=== PATIENT | male | born 1955 | race Caucasian/White ===

== ENCOUNTER 2022-06-21 17:02 | Inpatient (IN) | payer MEDICARE, SELFPAY ==
[2022-06-18 08:41] VITALS: BMI 31.1
--- NOTE | 2022-06-18 09:10 | PC.NURSE ---
Report to the Outpatient Waiting Room, entrance under the green pavilion located off [facility], at time _9:30AM on date __06/21/22 . Planned Procedure Time: __11:30AM . Time changes happen often and if your time is changed the preop area will call you the afternoon before. - You and your visitor will be asked to self-screen and do not enter if you have any COVID symptoms. - We encourage only one visitor and NO visitors under age 16 are allowed at this time. Your visitor will receive communication by the phone number that is given day of service. - The patient visitor is requested to social distance or may leave the building when not with patient due to restrictions. - A mask is required within the hospital. Patients may have clear liquids (water, carbonated beverages, clear teas, apple juice) until 3 hours prior to surgery with a maximum of 20 ounces. - No food from midnight until time of surgery Take the following medications with a SIP of water the morning of surgery: ___HYDROCODONE NEEDED, PREGABALIN NEEDED Medications to discontinue per physician __HOLD ASPIRIN 7 DAYS PRE-OP PER PATIENT (PER DR MELTON)- LAST DOSE WAS 06/14/22. HOLD ALL VITAMINS/SUPPLEMENTS 3 DAYS PRE-OP- LAST DOSE 06/18/22 Please no make-up, nail bermudian, hairspray, perfume, deodorant, or body powder the day of surgery. No jewelry (including any body piercings) or valuables the day of surgery, leave them at home. Please take a shower or bath the night before, or the morning of, surgery with an antibacterial soap. Wear comfortable, loose fitting clothing. Children are encouraged to wear pajamas. - Jewelry must be removed prior to entering the operating room. Rings and piercings that are not removed may be cut off. - The hospital will not accept responsibility for valuables. - Please leave all valuables, including medications, at home the day of surgery. If you are going home after surgery, a licensed route cdl driver must drive you home. - NO public transportation without another adult. - We recommend that an adult stay with you for 24 hours following discharge. - We also recommend that you do not drive, make important decision, drink alcoholic beverages, or take any drugs that were not prescribed by your health care provider for at least 24 hours after your discharge time. Follow any additional instructions given to you from your surgeon. If you or anyone in your household have experienced Covid symptoms in the past week, please notify your surgeon or the nurse liaison at the phone number below for possible testing. Telephone instructions given to _PATIENT___and asked if any additional questions and then verbalized understanding. Patient advised to call surgeon office or pre surgery nurse liaison [phone] if any additional questions.
[2022-06-21] VITALS (14 sets, daily range): BP systolic 134–173; BP diastolic 77–105; PULSE 63–86; RESP 13–19; TEMP 36.2–36.6; O2SAT 92–100
--- NOTE | ~2022-06-21 | XR_ITS ---
EXAMINATION: XR fluoroscopy no charge INDICATION: Spinal fusion TECHNIQUE: Three intraoperative fluoroscopic images are submitted for review. Total fluoroscopic time was 9.2 seconds COMPARISON: None available FINDINGS: Fluoroscopic images demonstrate instrumented posterior fusion of the spine. Please refer to procedure note for full details. IMPRESSION: 1. Please refer to procedure note for full details. Reviewed, dictated and finalized at location [facility]
--- NOTE | 2022-06-21 10:52 | P.PNAN_ITS ---
Anes - Initial Pre Proc Eval Procedure: Operation Date: 06/21/22 11:30 Proposed Procedures p C3-T1 Laminectomy, C3-T2 Lateral Mass Instrumented Fusion - Aron Gomez MD Date/Time: 06/21/22 10:52 Surgeon: Aron Gomez MD Pre Op Diagnosis: cervical stenosis w/myelopathy Patient Data Age: 67 Gender: M Height: 1.83 m Weight: 104 kg Allergies Allergy/AdvReac Type Severity Reaction Status Date / Time chlorhexidine Allergy Itching, Verified 06/18/22 08:32 RASH Home Medications Medication Instructions Recorded Confirmed Type acetaminophen 650 mg 1,300 mg PO Q12H PRN Pain 06/18/22 06/18/22 History tablet,extended release aspirin 81 mg tablet,delayed 81 mg PO DAILY 06/18/22 06/18/22 History release atorvastatin 40 mg tablet 40 mg PO 3XW 06/18/22 06/18/22 History coenzyme Q10 100 mg capsule 100 mg PO 3XW 06/18/22 06/18/22 History (CoQ-10) duloxetine 30 mg capsule,delayed 60 mg PO HS 06/18/22 06/18/22 History release hydrocodone 5 mg-acetaminophen 325 1 tablet PO Q4-6H PRN Pain 06/18/22 06/18/22 History mg tablet pantoprazole 40 mg tablet,delayed 40 mg PO BID 06/18/22 06/18/22 History release pregabalin 100 mg capsule 100 mg PO TID 06/18/22 06/18/22 History Patient hx anesthesia problems: none Family hx anesthesia problems: none Results Review: All pre-operative results and documents have been reviewed as part of the pre- operative evaluation. [facility] Social History Social History Smoking packs per day: 0.5 Smoking cigarettes per day: 10.0 Years smoked: 30 Smoking pack-years: 15.00 Smoking status: Former smoker Tobacco type: cigarettes Smoking end date: 02/02/17 Alcohol intake: current Drinks per week: 2 Substance use: never Living arrangements: with family Additional living arrangements comments: Spiritual care concerns: No Anes - Eval Final PreProcedure Day of Procedure 06/21/22 10:52 Patient weight: obese Heart: regular rate and rhythm Lungs: clear to auscultation Airway: Mallampati scale class III Neurological: alert and oriented Last oral intake: >/= 8 hours ASA classification: III Emergent: no Anesthetic plan: proceed Anesthesia type and monitoring: general ETT and standard monitoring Results Review: All pre-operative results and documents have been reviewed as part of the pre- operative evaluation. Informed Consent: The patient's anesthetic plan and its attendant risks and benefits were discussed with the patient/family/POA. Questions were solicited and answers provided to the satisfaction of the patient/family/POA.
[2022-06-21 10:56] LABS: Basophils Percent Auto 0.5 % (0.2-1.2); Eosinophils Absolute Auto 0.1 K/mm3 (0-0.3); Eosinophils Percent Auto 1.2 % (0-4.4); Hemoglobin 13.6 g/dL (14.0-18.0); Immature Granulocyte Absolute 0.03 K/mm3 (0.00-0.031); Immature Granulocyte Percent A 0.4 % (0-0.5); Lymphocytes Absolute Auto 1.82 K/mm3 (0.9-3.2); Lymphocytes Percent Auto 24.9 % (18.3-44.2); Mean Corpuscular HGB Conc 33.2 g/dl (32-36); Mean Corpuscular Hemoglobin 29.2 pg (26-34); Mean Platelet Volume 11.3 fl (7.4-10.4); Monocytes Absolute Auto 0.5 K/mm3 (0.1-0.6); Monocytes Percent Auto 7.2 % (2.6-8.5); Neutrophils Absolute Auto 4.8 K/mm3 (1.3-6.7); Neutrophils Percent Auto 65.8 % (45.5-73.1); Platelet Count Result 183 k/mm3 (150-375); Red Blood Count 4.66 M/mm3 (4.6-6.20); Red Cell Distribution Width 13.4 % (11.5-14.5); White Blood Count 7.3 K/mm3 (4.5-10.0)
--- NOTE | 2022-06-21 11:47 | PM.IMHP ---
H&P: HPI History of Present Illness Date/Time: 06/21/22 11:47 Chief Complaint: Neck and arm pain, imbalance Narrative: Edgar is a 67-year-old gentleman with neck and arm pain as well as spinal cord compression causing myelopathy who presents for C3-T2 laminectomy and lateral mass instrumented fusion. He has not changed since we saw him last. He does not have specific muscle group weakness or dermatomal numbness. He does have general weakness in his distal upper extremities. He does not have bowel or bladder difficulty. He continues to have imbalance. Review of Systems Review of Systems: Patient denies shortness of breath, cough, fever, chills, nausea, vomiting, chest pain, weight loss, weight gain, dysuria. He has neck and arm pain as described above. He has imbalance. his review of systems otherwise negative except as noted elsewhere. [facility] Social History Social History Smoking packs per day: 0.5 Smoking cigarettes per day: 10.0 Years smoked: 30 Smoking pack-years: 15.00 Smoking status: Former smoker Tobacco type: cigarettes Smoking end date: 02/02/17 Alcohol intake: current Drinks per week: 2 Substance use: never Living arrangements: with family Additional living arrangements comments: Spiritual care concerns: No Meds Home Medications and Allergies Home Medications Medication Instructions Recorded Confirmed Type acetaminophen 650 mg 1,300 mg PO Q12H PRN Pain 06/18/22 06/18/22 History tablet,extended release aspirin 81 mg tablet,delayed 81 mg PO DAILY 06/18/22 06/18/22 History release atorvastatin 40 mg tablet 40 mg PO 3XW 06/18/22 06/18/22 History coenzyme Q10 100 mg capsule 100 mg PO 3XW 06/18/22 06/18/22 History (CoQ-10) duloxetine 30 mg capsule,delayed 60 mg PO HS 06/18/22 06/18/22 History release hydrocodone 5 mg-acetaminophen 325 1 tablet PO Q4-6H PRN Pain 06/18/22 06/18/22 History mg tablet pantoprazole 40 mg tablet,delayed 40 mg PO BID 06/18/22 06/18/22 History release pregabalin 100 mg capsule 100 mg PO TID 06/18/22 06/18/22 History Allergies Allergy/AdvReac Type Severity Reaction Status Date / Time chlorhexidine Allergy Itching, Verified 06/18/22 08:32 RASH Exam Narrative: Patient is a normally developed, normal appearing male supine on the hospital bed in no acute distress. He is awake, alert, oriented x3, with good fund of knowledge, recall of events and fluent speech. His face is symmetrical, tongue is midline, his pupils are equal reactive to light his extraocular movements are intact without diplopia or nystagmus. Strength is normal in the bilateral upper extremities with the exception of slight manager quantitative weakness and intrinsic weakness bilaterally. Sensation is intact to light touch throughout the upper extremities. Clear to auscultation Regular rate rhythm. H&P: Results Labs Labs: Short CBC 06/21/22 Range/Units 10:50 WBC 7.3 (4.5-10.0) K/mm3 Hgb 13.6 L (14.0-18.0) g/dL Hct 41.0 L (42.0-52.0) % Plt Count 183 (150-375) k/mm3 Assessment and Plan Assessment and plan (1) Cervical stenosis of spinal canal: Code(s): M48.02 - Spinal stenosis, cervical region Status: Acute (2) Myelopathy: Code(s): G95.9 - Disease of spinal cord, unspecified Status: Acute (3) Foraminal stenosis of cervical region: Code(s): M48.02 - Spinal stenosis, cervical region Status: Acute Plan Edgar is 67-year-old gentleman who presents for laminectomy and lateral mass instrumented fusion at C3-T2 for spinal cord compression and myelopathy as well as neck and arm pain. I described to him again that operation, its risks, potential benefits, the operative and postoperative course in detail and answered all his questions personally. He indicates understanding and elects to proceed with that operation.
--- NOTE | 2022-06-21 11:50 | WPDHPUPDATE1 ---
History and Physical Update Update Date/Time: 06/21/22 11:50 History and Physical has been reviewed, including an updated exam of the patient. There are NO changes in the patient's condition. Risks, benefits, and alternatives have been discussed and questions answered. Patient agrees to proceed with procedure.
[2022-06-21] MEDS: ceFAZolin 2 GM/D5W 50 ML 2 GM/50 ML BAG IVPB (13:05)
[2022-06-21] MEDS: BUPIVACAINE/EPINEPHRINE 0.25% 50 ML VIAL 30 ML INFILTRATE (13:07)
--- NOTE | 2022-06-21 15:03 | W.PM.PROC2 ---
Procedure Note - Detailed Date of Procedure 06/21/22 Pre-op Diagnosis cervical stenosis w/myelopathy Post-op Diagnosis Same Procedure Performed C3-T1 laminectomy and C3-T2 lateral mass instrumented fusion with lateral mass and pedicle screws and local autograft Surgeon Aron Gomez MD Wrapper Stemmer Hand Fly [place] General Indications Edgar is a 67-year-old gentleman with a cervical spondylotic myelopathy and neck pain who presents for decompression and fusion from a posterior approach. Description of Procedure Patient was brought to the operating room in the supine position, was sedated, intubated and placed under general anesthesia in routine fashion. He was then turned into the prone position on gel rolls with his head in a Antunez head of visual merchandising with pins attached to the bed frame in a Petterchak dirt and flexed position. The area of operation on the back of his neck was examined, marked for incision, prepped and draped in routine sterile fashion. Incision was marked over the C3 through T2 spinous processes in the midline. This area was injected with 0.5% lidocaine with [id number] epinephrine. Intravenous antibiotics given prior to incision. Incision was made with a 10 blade scalpel down to the cervical fascia. A subperiosteal dissection of the muscle and soft tissue away from the spinous processes and lamina at C3-T2 was performed with a subperiosteal elevator and Bovie cautery. Self-retaining retractors were placed. A verifying x-rays obtained to verify the level of operation. A Midas Marcelino drill was used to create a transient the lamina bilaterally at L3-T1 until the soft contents of the canal were encountered. A Leksell rongeur was used to cut the interspinous ligament below T1 above C3 and Kerrison punches were used to remove soft tissue adherent in the lateral epidural space underneath the trough cut. The C3 through T1 laminae a could then be removed in 1 piece with the spinous processes. These were stripped free of soft tissue and morselized for later use as lateral mass fusion bone. Kerrison punches and curved curettes were used to define a plane with the dura and remove additional bone and ligament completing the laminectomy. Lateral mass screws were placed at C3 through C6 by creating a hole 1 mm medial and 1 mm mm inferior to the mid plate of the facet and then creating a hole 14 mm deep and a trajectory 20? cephalad 20? lateral in each facet. A 14 mm screw was then placed into each lateral mass except at C4 on the left as it exited the bone laterally and would not hold a screw. Pedicle screw instrumentation was performed at T1 and T2 by observing and palpating the pedicle while a hole was made in the superior articular process above the pedicle using a Midas Marcelino drill. The pedicle was then cannulated with a pedicle probe, checked for continuity with the ball probe, tapped with a 3.5 mm tap and a 4 x 26 mm screw was placed except at the left T1 pedicle where a 30 mm screw was placed. Lateral masses and facets were then decorticated using a Midas Marcelino drill. The morselized bone was packed inside the facets and on along the lateral masses from C3-T2. 120 mm rods were fashion and placed into the screw heads on either side and then secured in position using the caps for that purpose. These were definitively tightened with a torque and anti torque device. The wound had been copiously irrigated with bacitracin irrigation all bleeding stopped with bipolar and Bovie cautery and Gelfoam thrombin powder. The wound was then closed in layered fashion with 2-0 Vicryl interrupted sutures in the cervical fascia and Reggie's layer. 3-0 Vicryl buried interrupted sutures were placed in the dermis and the skin was closed with samuel and dressed with gauze and tape dressing. The patient was then turned into the supine position on hospital bed and the Antunez was removed. Patient was loud wake up in the operating room and was taken to the recovery r
[2022-06-21] MEDS: LACTATED RINGERS 1,000 ML 30 ML IV CONT (15:28)
[2022-06-21] MEDS: fentaNYL CITRATE INJ (*CRX) 100 MCG/2 ML VIAL 25 MCG IV PUSH ×7 (15:53→16:55)
--- NOTE | 2022-06-21 17:23 | PC.NURSE ---
This patient, Edgar Rascon, was admitted to Medical Room 246-01. Patient/family oriented to hospital policies and general routines including ID bracelet, bed and alarms, visiting hours, pain management, procedures, bathroom and other care routines, personal items, smoking policy, room service/diet, and visiting hours. Information on how to activate the Rapid Response Team has been discussed. Patient/Family are encouraged to report perceived risks to care and to ask questions if they do not understand what they are told or what they should do.
[2022-06-21] MEDS: KCL 20 MEQ/D5/0.45% SOD CHL 1,000 ML 100 ML IV CONT (17:49)
[2022-06-21] MEDS: PREGABALIN (*CRX) 50 MG CAPSULE 100 MG PO (17:54)
[2022-06-21] MEDS: HYDROcodone/acetaminophen (*CRX) 10-325 MG TABLET 1 TAB PO (17:55)
[2022-06-21] MEDS: DOCUSATE SODIUM 100 MG CAPSULE PO (20:51)
[2022-06-21] MEDS: DULoxetine HCL 60 MG CAPSULE.DR PO (20:51)
[2022-06-21] MEDS: HYDROmorphone HCL INJ (*CRX) 1 MG/ML SYR 0.5 MG IV PUSH (21:28)
[2022-06-22] MEDS: HYDROcodone/acetaminophen (*CRX) 10-325 MG TABLET 1 TAB PO (00:28)
[2022-06-22 02:00] VITALS: BP 122/75; PULSE 72; RESP 18; TEMP 36.8; O2SAT 97
[2022-06-22] MEDS: HYDROmorphone HCL INJ (*CRX) 1 MG/ML SYR 0.5 MG IV PUSH (02:45)
[2022-06-22 05:17] VITALS: BP 126/73; PULSE 68; RESP 17; TEMP 36.6; O2SAT 93
[2022-06-22] MEDS: KCL 20 MEQ/D5/0.45% SOD CHL 1,000 ML 100 ML IV CONT ×2 (06:07→20:24)
[2022-06-22] MEDS: PREGABALIN (*CRX) 50 MG CAPSULE 100 MG PO ×3 (08:50→16:56)
[2022-06-22] MEDS: ATORVASTATIN 40 MG TABLET PO (08:50)
[2022-06-22] MEDS: DOCUSATE SODIUM 100 MG CAPSULE PO ×2 (08:50→20:24)
[2022-06-22] MEDS: PANTOPRAZOLE 40 MG TABLET PO ×2 (08:50→16:57)
--- NOTE | 2022-06-22 08:54 | P.PNAN_ITS ---
Anes - Prog Note Post-Op Date/Time: 06/22/22 08:54 Cardiovascular status: normal Respiratory status: normal Airway patency: other (uvulva swollen, airway clear, no active bleeding, phonation intact, recommend HOB elevated, atraumatic intubation) Mental status: baseline Post-Op hydration status: normal Vital Signs: Last Vital Signs Temp 36.6 C 06/22/22 05:17 Pulse 68 06/22/22 05:17 Resp 17 06/22/22 05:17 BP 126/73 06/22/22 05:17 Pulse Ox 93 06/22/22 05:17 O2 Del Method Room Air 06/22/22 08:15 O2 Flow Rate 2 06/21/22 20:00 Pain Score (VAS): 09/14 I/O: Intake & Output 06/21/22 06/22/22 06/22/22 23:59 07:59 15:59 Intake Total 5050 1500 Output Total 190 1300 Balance 4860 200 Laboratory Tests 06/21/22 10:50 06/21/22 06/21/22 10:50 10:50 WBC 7.3 RBC 4.66 Hgb 13.6 L Hct 41.0 L MCV 88.0 MCH 29.2 MCHC 33.2 RDW 13.4 Plt Count 183 MPV 11.3 H Immature Gran % (Auto) 0.4 Neut % (Auto) 65.8 Lymph % (Auto) 24.9 Routt % (Auto) 7.2 Eos % (Auto) 1.2 Baso % (Auto) 0.5 Lymph # (Auto) 1.82 Routt # (Auto) 0.5 Eos # (Auto) 0.1 Baso # (Auto) 0.0 Abs Immat Gran (auto) 0.03 Absolute Neuts (auto) 4.8 Absolute Nucleated RBC 0.0 Nucleated RBC % 0.0 Blood Type A Positive Antibody Screen Negative Post-procedural complaints: none Patient Feedback: Patient satisfied with anesthetic care.
--- NOTE | 2022-06-22 08:56 | WPDNEUROSGPN ---
Progress Note: A&P Assessment and Plan (1) Foraminal stenosis of cervical region: Code(s): M48.02 - Spinal stenosis, cervical region Status: Acute (2) Myelopathy: Code(s): G95.9 - Disease of spinal cord, unspecified Status: Acute (3) Cervical stenosis of spinal canal: Code(s): M48.02 - Spinal stenosis, cervical region Status: Acute Plan I will change the hydrocodone to oxycodone. We will continue to watch the drain output today. He will continue to 5 participate in physical therapy. I will get him a hard cervical collar. Subjective Date/time seen: 06/22/22 08:56 The patient is postop day 1 status post C3 to T1 laminectomy and C3-T2 lateral mass instrumented fusion. He is doing well from the standpoint of that med has discomfort that is limiting and some confidence issues when he stands and walks. He described having imbalance or unsteadiness today which, as mentioned, the physical therapist believes is related to fear and lack of confidence. He does not report any new issues in his upper or lower extremities. He is not having any bowel or bladder difficulty. The IV pain medicine is helping him but not the p.o. pain medicine. Exam Narrative: In the sitting position strength is normal in the bilateral lower extremities to direct confrontation. Sensation is intact to light touch throughout the lower extremities. Dressing is clean, dry and intact. The drain bulb was expanded with significant sanguinous fluid in it. Objective Data Vital Signs Vital Signs: Vital Signs - 24 hr 06/21/22 15:28 06/21/22 15:40 06/21/22 15:55 Temperature 97.7 F Pulse Rate 74 67 64 Respiratory Rate 13 16 15 Blood Pressure 173/105 H 161/101 H 162/84 H Pulse Oximetry 100 100 100 Oxygen Delivery Simple Face Mask Simple Face Mask Simple Face Mask Oxygen Flow Rate 6 6 6 06/21/22 16:10 06/21/22 16:25 06/21/22 16:40 Temperature Pulse Rate 69 63 66 Respiratory Rate 16 16 17 Blood Pressure 143/92 H 134/94 H 143/84 H Pulse Oximetry 92 100 98 Oxygen Delivery Room Air Nasal Cannula Nasal Cannula Oxygen Flow Rate 2 2 06/21/22 16:55 06/21/22 17:31 06/21/22 17:25 Temperature 97.1 F L Pulse Rate 64 79 Respiratory Rate 19 14 Blood Pressure 146/92 H 146/77 H Pulse Oximetry 96 95 95 Oxygen Delivery Nasal Cannula Nasal Cannula Oxygen Flow Rate 2 2 06/21/22 17:45 06/21/22 18:10 06/21/22 19:50 Temperature 97.2 F L 97.4 F L 97.3 F L Pulse Rate 69 80 70 Respiratory Rate 16 14 16 Blood Pressure 145/90 H 138/80 137/84 Pulse Oximetry 95 98 96 Oxygen Delivery Oxygen Flow Rate 06/21/22 21:49 06/21/22 20:00 06/22/22 02:00 Temperature 97.8 F 98.2 F Pulse Rate 86 72 Respiratory Rate 18 18 Blood Pressure 141/81 H 122/75 Pulse Oximetry 95 96 97 Oxygen Delivery Nasal Cannula Oxygen Flow Rate 2 06/22/22 05:17 06/22/22 08:15 Temperature 97.8 F Pulse Rate 68 Respiratory Rate 17 Blood Pressure 126/73 Pulse Oximetry 93 Oxygen Delivery Room Air Oxygen Flow Rate Intake/Output Intake/Output: Intake & Output 06/19/22 06/20/22 06/21/22 06/22/22 23:59 23:59 23:59 23:59 Intake Total 7550 1500 Output Total 190 1300 Balance 7360 200 Meds/Results Medications: Active Medications Generic Name Dose Route Start Last Admin Trade Name Freq PRN Reason Stop Dose Admin Hydrocodone Bitart/Acetaminophen 1 tab 06/21/22 17:02 Hydrocodone/Acetaminophen (*Crx) 5-325 Mg Tablet PO Q4H PRN Mild Pain (1-3) Hydrocodone Bitart/Acetaminophen 1 tab 06/21/22 17:02 06/22/22 00:28 Hydrocodone/Acetaminophen (*Crx) 10-325 Mg Tablet PO 1 tab Q4H PRN Administration Moderate Pain (4-6) Al Hydrox/Mg Hydrox/Simethicone 20 ml 06/21/22 17:02 Mag Hydrox/Al Hydrox/Simeth 30 Ml Udc PO Q4H PRN Indigestion/Heartburn Atorvastatin Calcium 40 mg 06/22/22 09:00 06/22/22 08:50 Atorvastatin 40 Mg Tablet PO 40 mg MoW
[2022-06-22 10:00] VITALS: BP 136/76; PULSE 63; RESP 18; TEMP 36.4; O2SAT 95
[2022-06-22] MEDS: oxyCODONE/ACETAMINOPHEN (*CRX) 10-325 MG TABLET 1 TAB PO ×2 (11:27→19:59)
--- NOTE | 2022-06-22 11:54 | PCOTNOTE ---
Attempted to see pt. for occupational therapy evaluation. Per nursing, pt. has been significantly fatigued and has requested to rest at this time. Following.
--- NOTE | 2022-06-22 12:57 | PC.NURSE ---
On 06/22/22, the student, [Malou Pierce], provided care and completed [facility] documentation on this patient. I have reviewed the student's documentation and agree with the findings.
[2022-06-22 14:00] VITALS: BP 134/72; PULSE 62; RESP 18; TEMP 36.4; O2SAT 96
[2022-06-22 18:00] VITALS: BP 130/74; PULSE 64; RESP 18; TEMP 36.4; O2SAT 95
[2022-06-22] MEDS: DULoxetine HCL 60 MG CAPSULE.DR PO (20:24)
[2022-06-22 21:51] VITALS: BP 136/77; PULSE 66; RESP 18; TEMP 36.4; O2SAT 97
[2022-06-23] VITALS (7 sets, daily range): BP systolic 128–147; BP diastolic 68–80; PULSE 60–68; RESP 16–20; TEMP 36.1–36.5; O2SAT 93–95
[2022-06-23] MEDS: oxyCODONE/ACETAMINOPHEN (*CRX) 10-325 MG TABLET 1 TAB PO ×6 (00:16→20:44)
[2022-06-23] MEDS: KCL 20 MEQ/D5/0.45% SOD CHL 1,000 ML 100 ML IV CONT ×2 (09:01→19:47)
[2022-06-23] MEDS: SENNA/DOCUSATE SODIUM TABLET 1 TAB PO (09:08)
[2022-06-23] MEDS: PANTOPRAZOLE 40 MG TABLET PO ×2 (09:09→16:26)
[2022-06-23] MEDS: DOCUSATE SODIUM 100 MG CAPSULE PO ×2 (09:09→20:44)
[2022-06-23] MEDS: PREGABALIN (*CRX) 50 MG CAPSULE 100 MG PO ×3 (09:18→16:34)
[2022-06-23] MEDS: HYDROcodone/acetaminophen (*CRX) 5-325 MG TABLET 1 TAB PO (11:23)
--- NOTE | 2022-06-23 14:42 | WPDNEUROSGPN ---
Progress Note: A&P Assessment and Plan (1) Myelopathy: Code(s): G95.9 - Disease of spinal cord, unspecified Status: Acute Assessment and Plan: s/p C3-T1 laminectomy, C3-T2 posterior cervical fusion on 06/21 Plan Will keep today given hemovac output. Anticipate being able to pull drain tomorrow and that he can discharge home once the drain is out Subjective Date/time seen: 06/23/22 14:42 Interval history: Doing well with neck pain better controlled. States his pre-operative symptoms of arm pain and paresthesias has resolved since surgery. Has been walking with therapy. Tolerating PO and voiding well. HV with 200cc serosanguinous drainage in container; unclear when it was last emptied. 100cc recorded out yesterday Exam Narrative: AOx4 Full strength in all extremities Sensation intact Incision c/d/i with samuel intact Hamlin collar in place Objective Data Vital Signs Vital Signs: Vital Signs - 24 hr 06/22/22 18:00 06/22/22 21:51 06/22/22 20:00 Temperature 36.4 C 36.4 C Pulse Rate 64 66 Respiratory Rate 18 18 Blood Pressure 130/74 136/77 Pulse Oximetry 95 97 Oxygen Delivery Room Air 06/23/22 02:00 06/23/22 06:00 06/23/22 10:48 Temperature 36.5 C 36.5 C 36.1 C L Pulse Rate 64 60 68 Respiratory Rate 16 18 18 Blood Pressure 130/69 147/80 H 129/70 Pulse Oximetry 94 95 93 Oxygen Delivery 06/23/22 09:15 06/23/22 14:09 Temperature 36.2 C L Pulse Rate 68 63 Respiratory Rate 18 20 Blood Pressure 132/68 Pulse Oximetry 93 95 Oxygen Delivery Room Air Intake/Output Intake/Output: Intake & Output 06/20/22 06/21/22 06/22/22 06/23/22 23:59 23:59 23:59 23:59 Intake Total 7550 3940 1586 Output Total 190 1400 400 Balance 7360 8670 1186 Meds/Results Medications: Active Medications Generic Name Dose Route Start Last Admin Trade Name Freq PRN Reason Stop Dose Admin Hydrocodone Bitart/Acetaminophen 1 tab 06/21/22 17:02 06/23/22 11:23 Hydrocodone/Acetaminophen (*Crx) 5-325 Mg Tablet PO 1 tab Q4H PRN Administration Mild Pain (1-3) Al Hydrox/Mg Hydrox/Simethicone 20 ml 06/21/22 17:02 Mag Hydrox/Al Hydrox/Simeth 30 Ml Udc PO Q4H PRN Indigestion/Heartburn Atorvastatin Calcium 40 mg 06/22/22 09:00 06/22/22 08:50 Atorvastatin 40 Mg Tablet PO 40 mg [id number] TOBY Administration Bisacodyl 10 mg 06/21/22 17:02 Bisacodyl 10 Mg Suppository RECTAL DAILY PRN Constipation Cyclobenzaprine HCl 10 mg 06/21/22 17:02 Cyclobenzaprine Hcl 10 Mg Tablet PO TID PRN Muscle Spasms Docusate Sodium 100 mg 06/21/22 21:00 06/23/22 09:09 Docusate Sodium 100 Mg Capsule PO 100 mg Q12HR TOBY Administration Duloxetine HCl 60 mg 06/21/22 21:00 06/22/22 20:24 Duloxetine Hcl 60 Mg Capsule.Dr PO 60 mg HS TOBY Administration Hydromorphone HCl 0.5 mg 06/21/22 17:02 06/22/22 02:45 Hydromorphone Hcl Inj (*Crx) 1 Mg/Ml Syr IV PUSH 0.5 mg Q2H PRN Administration Pain Rated 7-10 Cefazolin Sodium 1 gm in 50 mls @ 100 mls/hr 06/21/22 21:00 06/23/22 12:59 Ancef 1 Gm/D5w 50 Ml Pm IVPB 100 mls/hr Q8H TOBY Administration Potassium Chloride/Dextrose/Sod Cl 1,000 mls @ 100 mls/hr 06/21/22 17:02 06/23/22 09:01 Kcl 20 Meq/D5/0.45% Sod Chl IV CONT 100 mls/hr .Q10H TOBY Administration Ondansetron HCl 4 mg 06/21/22 17:02 Ondansetron Inj 4 Mg/2 Ml Vial IV PUSH Q8H PRN Nausea And Vomiting Oxycodone/Acetaminophen 1 tablet 06/22/22 08:59 Oxycodone/Acetaminophen (*Crx) 5-325 Mg Tablet PO Q4H PRN Pain Rated 4-6 Oxycodone/Acetaminophen 1 tab 06/22/22 08:59 06/23/22 13:22 Oxycodone/Acetaminophen (*Crx) 10-325 Mg Tablet PO 1 tab Q4H PRN Administration Pain Rated 7-10 Pantoprazole Sodium 40 mg 06/21/22 17:02 06/23/22 09:09 Pantoprazole 40 Mg Tablet PO 40 mg BID TOBY Administration Pregabalin 100 mg 06/21/22 17:02 06/23/22 13:22
[2022-06-24 02:50] VITALS: BP 141/86; PULSE 65; RESP 16; TEMP 36.4; O2SAT 94
[2022-06-24] MEDS: oxyCODONE/ACETAMINOPHEN (*CRX) 10-325 MG TABLET 1 TAB PO (03:33)
[2022-06-24 06:00] VITALS: BP 123/73; PULSE 61; RESP 18; TEMP 36.3; O2SAT 95
[2022-06-24] MEDS: PREGABALIN (*CRX) 50 MG CAPSULE 100 MG PO ×2 (07:57→12:54)
[2022-06-24] MEDS: PANTOPRAZOLE 40 MG TABLET PO (07:58)
[2022-06-24] MEDS: DOCUSATE SODIUM 100 MG CAPSULE PO (07:58)
[2022-06-24] MEDS: KCL 20 MEQ/D5/0.45% SOD CHL 1,000 ML 100 ML IV CONT (07:59)
[2022-06-24] MEDS: HYDROcodone/acetaminophen (*CRX) 5-325 MG TABLET 1 TAB PO (09:13)
--- NOTE | 2022-06-24 12:10 | WPDNEUROSGPN ---
Progress Note: A&P Assessment and Plan (1) Myelopathy: Code(s): G95.9 - Disease of spinal cord, unspecified Status: Acute Assessment and Plan: s/p C3-T1 laminectomy, C3-T2 posterior fusion on 06/21 Plan: -Hemovac drain removed today at beside. 3-0 nylon suture placed at drain exit site -Continue Amma collar per Dr. Gomez' recommendations -Follow up as scheduled for staple removal Subjective Date/time seen: 06/24/22 12:10 Doing well this morning. Notes discomfort in neck without significant pain. Has been eating, voiding, and ambulating well. Would like to go home HV 120cc out in 24 hours Exam Narrative: AOx4 Full strength in all extremities Sensation intact Incision c/d/i with samuel intact Objective Data Vital Signs Vital Signs: Vital Signs - 24 hr 06/23/22 14:09 06/23/22 18:25 06/23/22 20:00 Temperature 36.2 C L 36.2 C L Pulse Rate 63 64 Respiratory Rate 20 18 Blood Pressure 132/68 128/75 Pulse Oximetry 95 95 Oxygen Delivery Room Air 06/23/22 22:53 06/24/22 02:50 06/24/22 06:00 Temperature 36.1 C L 36.4 C L 36.3 C L Pulse Rate 63 65 61 Respiratory Rate 18 16 18 Blood Pressure 143/71 H 141/86 H 123/73 Pulse Oximetry 95 94 95 Oxygen Delivery 06/24/22 08:00 Temperature Pulse Rate Respiratory Rate Blood Pressure Pulse Oximetry Oxygen Delivery Room Air Intake/Output Intake/Output: Intake & Output 06/21/22 06/22/22 06/23/22 06/24/22 23:59 23:59 23:59 23:59 Intake Total 7550 3940 3376 1890 Output Total 190 1866 306 9121 Balance 7360 2540 2456 890 Meds/Results Medications: Active Medications Generic Name Dose Route Start Last Admin Trade Name Freq PRN Reason Stop Dose Admin Hydrocodone Bitart/Acetaminophen 1 tab 06/21/22 17:02 06/24/22 09:13 Hydrocodone/Acetaminophen (*Crx) 5-325 Mg Tablet PO 1 tab Q4H PRN Administration Mild Pain (1-3) Al Hydrox/Mg Hydrox/Simethicone 20 ml 06/21/22 17:02 Mag Hydrox/Al Hydrox/Simeth 30 Ml Udc PO Q4H PRN Indigestion/Heartburn Atorvastatin Calcium 40 mg 06/22/22 09:00 06/22/22 08:50 Atorvastatin 40 Mg Tablet PO 40 mg [id number] TOBY Administration Bisacodyl 10 mg 06/21/22 17:02 Bisacodyl 10 Mg Suppository RECTAL DAILY PRN Constipation Cyclobenzaprine HCl 10 mg 06/21/22 17:02 Cyclobenzaprine Hcl 10 Mg Tablet PO TID PRN Muscle Spasms Docusate Sodium 100 mg 06/21/22 21:00 06/24/22 07:58 Docusate Sodium 100 Mg Capsule PO 100 mg Q12HR TOBY Administration Duloxetine HCl 60 mg 06/21/22 21:00 06/23/22 22:00 Duloxetine Hcl 60 Mg Capsule.Dr PO Not Given HS TOBY Hydromorphone HCl 0.5 mg 06/21/22 17:02 06/22/22 02:45 Hydromorphone Hcl Inj (*Crx) 1 Mg/Ml Syr IV PUSH 0.5 mg Q2H PRN Administration Pain Rated 7-10 Cefazolin Sodium 1 gm in 50 mls @ 100 mls/hr 06/21/22 21:00 06/24/22 07:54 Ancef 1 Gm/D5w 50 Ml Pm IVPB Infused Q8H [facility] Infusion Potassium Chloride/Dextrose/Sod Cl 1,000 mls @ 100 mls/hr 06/21/22 17:02 06/24/22 07:59 Kcl 20 Meq/D5/0.45% Sod Chl IV CONT 100 mls/hr .Q10H TOBY Administration Ondansetron HCl 4 mg 06/21/22 17:02 Ondansetron Inj 4 Mg/2 Ml Vial IV PUSH Q8H PRN Nausea And Vomiting Oxycodone/Acetaminophen 1 tablet 06/22/22 08:59 Oxycodone/Acetaminophen (*Crx) 5-325 Mg Tablet PO Q4H PRN Pain Rated 4-6 Oxycodone/Acetaminophen 1 tab 06/22/22 08:59 06/24/22 03:33 Oxycodone/Acetaminophen (*Crx) 10-325 Mg Tablet PO 1 tab Q4H PRN Administration Pain Rated 7-10 Pantoprazole Sodium 40 mg 06/21/22 17:02 06/24/22 07:58 Pantoprazole 40 Mg Tablet PO 40 mg BID TOBY Administration Pregabalin 100 mg 06/21/22 17:02 06/24/22 07:57 Pregabalin (*Crx) 50 Mg Capsule PO 100 mg TID TOBY Administration Senna/Docusate Sodium 1 tab 06/21/22 17:02 06/23/22 09:08 Senna/Docusate Sodium Tablet PO 1 tab HS PRN Adm
--- NOTE | 2022-06-24 13:11 | PC.NURSE ---
Verbal Order for Flexaril 10 mg PO TID PRN #[id number] to [place], [place] pharmacy for Dr Dana Cain.
--- NOTE | 2022-07-31 21:46 | PM.DS ---
DS: Admitting Diagnosis Discharge Date 06/24/22 Admitting Diagnosis Cervical spondylotic myelopathy DS: Discharge Diagnosis Discharge Diagnosis Plan for cristian is 67-year-old gentleman with a cervical spondylotic myelopathy who presents for a C3-T1 laminectomy and C3-T2 lateral mass instrumented fusion. DS: Summary Hospital Course Hospital Course: Edgar was taken to the operating room on 06/21/2022 with the aforementioned operation was performed without complication. The patient went to the floor postoperatively. Physical and occupational therapy was involved in his care. His Dailey catheter was removed on postoperative day 1 along with his drain. Physical and occupational therapy were involved in his care. She at the time of his discharge he was eating, ambulating and emptying his bladder with his pain under control with by mouth pain medicine. His wound remained clean dry and intact. He was afebrile with stable vital signs. He was therefore allowed to be discharged home. Time Spent with Patient Time attestation: Total time spent providing and/or coordinating discharge services: Discharge Plan Discharge Consulting providers: Jeremy Wilson ; Dana Cain Discharging Clinician: Dana Cain Patient Disposition: Home, Self-Care Activity: other - see discharge instructions Diet: regular Wound Care Instructions: other - see discharge instructions Discharge Instructions: You may shower. The drain will remain in place until you follow up in two weeks with Dr Bolden in office. Wear your cervical collar at all times until then. DO NOT LIFT ANYTHING GREATER THAN LBS. You have a prescription for [place] to help with your pain and a muscle relaxer, as well. Do not drive, operate any heavy machinery until you follow-up with Dr Gomez. Patient Instructions: Antibiotic Form, Safe Use of Anticoagulants (GEN) Stand Alone Forms: General Discharge Information Follow-up/Referrals: Aron Gomez MD [Physician] - Discharge Medications: New hydrocodone-acetaminophen 5-325 mg tablet 1 tablet PO Q6H PRN (Reason: pain) 7 Days Qty: 28 0RF cyclobenzaprine 10 mg Tablet 10 mg PO TID PRN (Reason: Muscle Spasms) 0RF docusate sodium 100 mg Capsule 100 mg PO Q12HR 0RF alum-mag hydroxide-simeth [Mag-Al Plus] 200-200-20 mg/5 mL Suspension 20 ml PO Q4H PRN (Reason: Indigestion/Heartburn) 0RF duloxetine 60 mg Capsule,Delayed Release(Dr/Ec) 60 mg PO HS 0RF Continued atorvastatin 40 mg tablet 40 mg PO 3XW pantoprazole 40 mg Tablet,Delayed Release (Dr/Ec) 40 mg PO BID pregabalin 100 mg capsule 100 mg PO TID coenzyme Q10 [CoQ-10] 100 mg Capsule 100 mg PO 3XW acetaminophen 650 mg Tablet Extended Release 1,300 mg PO Q12H PRN (Reason: Pain) Discontinued hydrocodone-acetaminophen 5-325 mg tablet 1 tablet PO Q4-6H PRN (Reason: Pain) aspirin [Adult Aspirin EC Low Strength] 81 mg Tablet,Delayed Release (Dr/Ec) 81 mg PO DAILY duloxetine 30 mg capsule,delayed release(DR/EC) 60 mg PO HS Date of admission: 06/21/22 17:02 Primary Care Provider: PHYSICIAN NOT ON STAFF,NONSTAFF Admitting Provider: Aron Gomez Attending physician on admission: Aron Gomez Condition: Improved
== END 2022-06-24 13:06 | disposition home or self-care (01) | DRG 460 ==
LOC: ANH2MED 17:16
PROVIDERS: Admitting Provider Neurological Surgery; Visit Provider Neurological Surgery
PROC: 0RG6071 Fusion of Thoracic Vertebral Joint with Autologous Tissue Substitute, Posterior Approach, Posterior Column, Open Approach (ICD-10-PCS; CPT 63030; principal; 2022-06-21 11:30)
DX: M48.02 Spinal stenosis, cervical region (principal); G99.2 Myelopathy in diseases classified elsewhere; Z87.891 Personal history of nicotine dependence; Z79.82 Long term (current) use of aspirin; Z79.899 Other long term (current) drug therapy
CPT/HCPCS: 36415; 85025; 86850; 86900; 86901; 97110; 97116; 97161; 97165; 97530; 97535; 99199; A9270; C1713; C9290; J0330; J0690; J1100; J1170; J2250; J2270; J2405; J2704; J2710; J3010; J3370; J3480; J7120; L0140